=== PATIENT | male | born 1995 | race Caucasian/White ===

== ENCOUNTER 2017-07-20 01:50 | Emergency (ER) | payer OTHER ==
[2017-07-20 02:09] VITALS: TEMP 98.2
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
[2017-07-20 03:05] VITALS: BP 117/74; PULSE 66; RESP 15; O2SAT 99
== END 2017-07-20 03:06 | disposition home or self-care (01) ==
PROC: 0HQDXZZ Repair Right Lower Arm Skin, External Approach (ICD-10-PCS; principal; 2017-07-20)
DX: S61.511A Laceration without foreign body of right wrist, initial encounter (principal); W25.XXXA Contact with sharp glass, initial encounter